=== PATIENT | female | born 1970 | race Caucasian/White ===

== ENCOUNTER → 2020-02-07 12:09 | Outpatient (CLI) | payer BC, SELFPAY ==
[2020-02-07 13:47] LABS: Coronavirus 19 IgG Antibody Negative (Negative); Coronavirus 19 IgM Antibody Negative (Negative)
== END ==
PROVIDERS: Visit Provider Internal Medicine Gastroenterology
DX: Z01.818 Encounter for other preprocedural examination (principal)
CPT/HCPCS: 36415; 86328

== ENCOUNTER 2020-02-08 08:38 | Day surgery (SDC) | payer BC, SELFPAY ==
[2020-02-06 15:16] VITALS: BMI 25.0
[2020-02-08 09:06] VITALS: BP 125/64; PULSE 83; RESP 20; TEMP 36.3; O2SAT 98
[2020-02-08 09:17] LABS: POC Glucose,Bedside 71 (70-110)
--- NOTE | 2020-02-08 09:26 | HMH.ANESCL ---
[facility] Anesthesia Checklist - Patient Identification Patient Identification: Arm Band - Structural Data Admitted From: Home Planned Operative Procedure/s: egd Consent for Planned Operative Procedure(s) Verified: Yes Verified Documents: Surgical Consent, History and Physical - NPO Status Verified Time NPO: 00:00 - Additional verifications Anesthesia Reactions: No - Airway Assessment C-Spine Mobility Assessed: Yes (mp2) TMJ Mobility Assessed: Yes Dentition: Good Dentition - Neurological Assessment Level of Consciousness: Awake, Alert - Anesthesia Plan Anesthesia Risk discussed: Yes Anesthesia Plan: Verified ASA Class: III Anesthesia Type: MAC [facility] History I have reviewed the patient's past medical history: Yes Medical History: Reports:: Anxiety, Depression, Diabetes Mellitus Type 1, Gastroesophageal Reflux Disease(GERD), Lung Disease (karlene-cpap hs) Denies:: Cancer, Diabetes Mellitus Type 2, Internal Pacemaker, MRSA, Seizures *Have you ever received a pneumonia vaccine?: No *Have you received a flu vaccine this season?: Yes Anesthesia experience/problems:: nac Laterality Cases: Right: ACL Repair Other Surgeries: Yes: Cholecystectomy, , EGD, Hysterectomy-Total, Tubal Ligation. No: Pacemaker Amputation: No Fractures: No - *Social History Last grade of school completed: Some college Smoking Status: Never smoker Alcohol Intake: never Substance Use Type: denies use *Occupational Status:: employed Housing: house Household Members: spouse *Travel in the last 8 weeks: None Family Hx:: No significant family history
--- NOTE | 2020-02-08 10:16 | P.PCN_ITS ---
[facility] Procedure Note Procedure Note:: Upper Endoscopy Procedure Report: Esophagogastroduodenoscopy with cold biopsies Endoscopost: Ten Winkler II, MD Referring Physician: Dixon Pereira MD Date of Procedure: February 08, 2020 Equipment: Olympus GIF 180 standard upper endoscope Sedation: MAC sedation Indications: Mrs. 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 She had been followed by myself and Dr. 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 She does have resultant diabetes. The patient did have surgery that resulted in pyloric sparing Freda-en-Y anatomy. The patient has had episodic bouts or flares of abdominal heaviness, nausea and pain. When she gets that she has constipation, bloating, nausea and vomiting. She feels like her energy gets drained. This is occurring every 2 to 3 weeks. She reports bloating but no significant gassiness or belching. She is on Creon 6 capsules with meals and 3 capsules with snacks. When she does develop the episodic bouts of dyspepsia, she develops hypomagnesemia and elevated histamine levels. The patient does take Sucraid. Procedure: Prior to the procedure, a history and physical exam was performed, and patient's medications and allergies were reviewed. The risks, benefits and alternatives of the sedation and procedure were discussed with the patient. All questions were answered and informed consent was obtained. The patient was brought to the procedure room. Patient identification and proposed procedure were verified by the physician and the nurse. The patient was placed in a left lateral decubitus position and the scope was passed under direct vision. Throughout the procedure, the patient's blood pressure, pulse, and oxygen saturations were monitored continuously. The upper GI endoscopy was accomplished without difficulty. The patient tolerated the procedure well. Findings: The scope was passed directly into the upper esophagus and advanced to both the afferent and efferent limbs of jejunum from the Freda anatomy which were entirely normal. The scope was withdrawn to the anastomosis and to the py lorus into the stomach. There was moderate bile reflux with mild linear reactive gastropathy of the antrum. The remainder of the antrum, body and fundus of the stomach were grossly normal. Upon retroflexion there was a 2 cm hiatal hernia. 2 biopsies were taken in the antrum and along the lesser curvature for histology to rule out gastritis and/or H pylori. The scope was then withdrawn into the esophagus. There was no evidence of reflux esophagitis or Mcnamara's. The remainder of the esophageal mucosa was normal. Impression: 1. Bile reflux with mild linear reactive gastropathy 2. Pyloric sparing Freda-en-Y anatomy 3. Nonerosive GERD with small 2 cm hiatal hernia Plan: I will follow-up the biopsies. 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 I would consider Zelnorm treatment and perhaps use of Xifaxan during the acute episodic events. The patient was on Zelnorm 15 years ago briefly. We will discuss treatment options.
[2020-02-08 10:28] VITALS: O2SAT 97
[2020-02-08 10:31] LABS: POC Glucose,Bedside 54 (70-110)
--- NOTE | 2020-02-08 10:35 | SUR.OPER ---
#20 RIGHT FOREARM D/C IV NOT PATENT. NEW IV STARTED BY Marleni JAMA RN #20 LT FOREARM. IV PATENT.
[2020-02-08 10:43] VITALS: BP 71/38; PULSE 65; RESP 18; TEMP 36.4; O2SAT 96
[2020-02-08 10:53] VITALS: BP 87/41; PULSE 62; RESP 18; O2SAT 98
[2020-02-08 11:03] VITALS: BP 91/61; PULSE 59; RESP 18; O2SAT 100
--- NOTE | 2020-02-08 11:03 | INFXCTL.NOTE ---
FS: 129
[2020-02-08 11:11] LABS: POC Glucose,Bedside 129 (70-110)
[2020-02-08 11:29] VITALS: BP 100/54; PULSE 59; RESP 18; O2SAT 99
== END 2020-02-08 11:34 | disposition home or self-care (01) ==
LOC: OUTP 08:42
PROVIDERS: PCP Internal Medicine; Visit Provider Internal Medicine Gastroenterology
PROC: 0DJ08ZZ Inspection of Upper Intestinal Tract, Via Natural or Artificial Opening Endoscopic (ICD-10-PCS; CPT 43235; principal; 2020-02-08 11:30)
DX: K21.9 Gastro-esophageal reflux disease without esophagitis (principal); K31.9 Disease of stomach and duodenum, unspecified; K44.9 Diaphragmatic hernia without obstruction or gangrene; Z98.84 Bariatric surgery status; Z87.19 Personal history of other diseases of the digestive system; Z90.410 Acquired total absence of pancreas; E89.1 Postprocedural hypoinsulinemia; E13.9 Other specified diabetes mellitus without complications; Z79.4 Long term (current) use of insulin; E83.42 Hypomagnesemia
CPT/HCPCS: 43239; 82962